=== PATIENT | male | born 1970 | race Caucasian/White ===

== ENCOUNTER 2016-08-31 09:33 | Day surgery (SDC) | payer OTHER ==
[~2016-08-31 09:33] MED LIST: FENTANYL 250 MCG/5 ML AMP IV PRN; LACTATED RINGERS 1,000 ML IV SCH; LIDOCAINE Viscous 2% 15 ML UDCUP PO PRN; MIDAZOLAM HCL 5 MG/5 ML VIAL IV PRN
[2016-08-31] MEDS ORDERED: IV START KIT ONE (09:53)
[2016-08-31] MEDS ORDERED: LACTATED RINGERS 1,000 ML ONE (09:53)
[2016-08-31] MEDS ORDERED: MIDAZOLAM HCL 5 MG/5 ML VIAL ONE (10:54)
[2016-08-31] MEDS ORDERED: FENTANYL 5 ML ONE (10:54)
[2016-08-31] MEDS ORDERED: LIDOCAINE Viscous 2% 15 ML UDCUP ONE (10:54)
[2016-08-31 17:17] LABS: HELICOBACTER PYLORII DETECTION NEGATIVE (NEGATIVE)
--- NOTE | 2016-09-02 10:46 | SURGPATH ---
[facility] [address] [place] [id number] Patient Name: ELLEN ROSALES MR#: [id number] : 1970 Gender: M Specimen #: [id number] Collected: 08/31/2016 Received: 09/01/2016 Reported: 09/02/2016 Submitting Phys: KAROLYN CUMMINGS Copy To Phys: AZRA FARRELL [facility] Clinical History / Pre-Operative Diagnosis: NAUSEA/VOMITING; BLOODY EMESIS; RULE OUT GIARDIA, CELIAC SPRUE AND GASTRITIS Specimen Source / Surgical Procedure Performed: #1-DUODENAL BIOPSY; #2-ANTRAL BIOPSY Interpretation: 1. DUODENUM, BIOPSY: - SMALL BOWEL MUCOSA WITH NO DIAGNOSTIC ABNORMALITY 2. STOMACH, ANTRUM, BIOPSY: - GASTRIC MUCOSA WITH NO DIAGNOSTIC ABNORMALITY Electronically Signed Out Nadege Valencia M.D. Gross Description: #1 The specimen is received in a formalin filled container labeled with the patient's name and "duodenal biopsy". A single gonzales biopsy is 0.4 cm. Totally embedded in cassette #1. #2 The specimen is received in a formalin filled container labeled with the patient's name and "antral biopsy". Two gonzales biopsies are 0.3 and 0.4 cm. Totally embedded in cassette #2. Teena Barksdale Microscopic Description: 1. Sections show fragments of small bowel mucosa with long and well preserved villous processes. There is no significant inflammation and lymphocytes are not increased within the epithelium. No infectious organisms are identified and there is no dysplasia. 2. Sections show fragments of gastric mucosa. There is normal mucosal architecture and no significant inflammation. No Helicobacter organisms are identified and there is no intestinal metaplasia or dysplasia. 1: [id number] 2: 27665 R11.2
== END 2016-08-31 12:22 | disposition home or self-care (01) ==
LOC: SDC 09:33
PROVIDERS: ATTEND Internal Medicine Gastroenterology
PROC: 0DB98ZX Excision of Duodenum, Via Natural or Artificial Opening Endoscopic, Diagnostic (ICD-10-PCS; principal; 2016-08-31)
PROC: 0DB68ZX Excision of Stomach, Via Natural or Artificial Opening Endoscopic, Diagnostic (ICD-10-PCS; 2016-08-31)
DX: K29.70 Gastritis, unspecified, without bleeding (principal); K29.80 Duodenitis without bleeding; E78.5 Hyperlipidemia, unspecified; I10 Essential (primary) hypertension; F32.9 Major depressive disorder, single episode, unspecified; E79.0 Hyperuricemia without signs of inflammatory arthritis and tophaceous disease; G89.29 Other chronic pain; M79.1 Myalgia
CPT/HCPCS: 87081; 43239; J3010; J2250; A9270; J7120